=== PATIENT | male | born 1965 | race Caucasian/White ===

== ENCOUNTER 2019-07-10 17:59 | Emergency (ER) | payer OTHER, MEDICAID ==
[~2019-07-10] VITALS: Ht 180.3 cm; Wt 109.6 kg
[2019-07-10 18:10] VITALS: BP 157/89
--- NOTE | 2019-07-10 19:09 | PHYS DOC ---
Past History Past Medical History: Dementia, Schizophrenia Past Medical History Limited secondary to dementia Past Surgical History: No Surgical History Past Surgical History Limited secondary to dementia Smoking: Cigarettes Alcohol Use: None Drug Use: None Social History Limited secondary to dementia Adult General Chief Complaint Chief Complaint: PSYCH EVALUATION HPI HPI 54-year-old male presents with family with report of auditory command hallucinations telling him to please her coming to take him to [facility]. Patient with history of paranoid schizophrenia. Patient recently being adjusted on medications including increase in Seroquel and addition of Zyprexa. Patient with additional diagnosis of dementia. Mother reports that there was concerned that patient's dementia was causing difficulty with his treatment plan. Family reports he called the police who came out and told patient he didn't have any warrants for his arrest. Patient did not believe them. Family reports he has been more aggressive and agitated. History of present illness limited secondary to dementia Review of Systems Review of Systems Psychiatric: Reports auditory command hallucinations; denies suicidal or homicidal ideation Review of systems limited secondary to dementia Current Medications Current Medications Current Medications Medications (Trade) Dose Ordered Sig/Melissa Start Time Stop Time Status Last Admin Dose Admin Lorazepam (Ativan) 1 mg 1X ONCE 07/10/19 19:15 07/10/19 19:16 UNV Physical Exam Physical Exam Constitutional: Well developed, well nourished, no acute distress, non-toxic appearance HENT: Normocephalic, atraumatic, oropharynx moist Eyes: PERRL, EOMI, conjunctiva normal, no discharge, no nystagmus Neck: Normal range of motion, no tenderness, supple Cardiovascular: Heart rate normal, regular rhythm Lungs & Thorax: Bilateral breath sounds clear to auscultation, no wheezing Abdomen: Soft, no tenderness Skin: Warm, dry, no erythema, no rash Extremities: No tenderness, ROM intact, no edema Neurologic: Alert and oriented X1, normal motor function, normal sensory function, no focal deficits noted Psychologic: Affect agitated and paranoid, judgment abnormal; denies suicidal or homicidal ideation. EKG EKG @1849 NSR at 68bpm, NO ST elevation, LAFB, QRS 106ms, QT/QTc 404/430ms Radiology/Procedures Radiology/Procedures [] Course & Med Decision Making Course & Med Decision Making Patient presents with command hallucinations with history of paranoid schizophrenia as well as dementia. Patient denies suicidal or homicidal ideation. Patient is a poor historian. Labs obtained and posted to chart. Patient medically cleared for psychiatric evaluation. Tele-psych evaluation performed and patient recommended for inpatient psychiatric services. Awaiting accepting placement for inpatient psychiatric services. Sign out given to Dr. Horn for further evaluation and final disposition. Discussed current findings and plan with patient and family, who acknowledge understanding and agreement. Dragon Disclaimer Dragon Disclaimer This electronic medical record was generated, in whole or in part, using a voice recognition dictation system. Departure Departure: Impression: Primary Impression: Auditory hallucination Additional Impressions: Dementia Paranoid schizophrenia Referrals: PCP,NO (PCP) Problem Qualifiers Additional Impressions: Dementia Dementia type: unspecified type Dementia behavioral disturbance: without behavioral disturbance Qualified Codes: F03.90 - Unspecified dementia without behavioral disturbance JOHN MENDEZ DO Jul 10, 2019 19:09
[2019-07-10] MEDS ORDERED: LORazepam 1 MG TABLET PO ONE (19:45)
[2019-07-10 19:48] LABS: BASO # 0.1 x10^3/uL (0.0-0.2); BASO % 1 % (0-3); EOS # 0.1 x10^3/uL (0.0-0.7); EOS % 2 % (0-3); HEMATOCRIT 45.8 % (39.0-53.0); HEMOGLOBIN 15.7 g/dL (13.0-17.5); LYMPH # 4.3 x10^3/uL (1.0-4.8); LYMPH % 53 % (24-48); MEAN CORPUSCULAR HEMOGLOBIN 32 pg (25-35); MEAN CORPUSCULAR HGB CONC 34 g/dL (31-37); MEAN CORPUSCULAR VOLUME 94 fL (79-100); MONO # 0.4 x10^3/uL (0.0-1.1); MONO % 5 % (0-9); NEUT # 3.2 x10^3uL (1.8-7.7); NEUT % 39 % (31-73); PLATELET COUNT 244 x10^3/uL (140-400); RED BLOOD COUNT 4.88 x10^6/uL (4.30-5.70); RED CELL DISTRIBUTION WIDTH 15.1 % (11.5-14.5); WHITE BLOOD COUNT 8.1 x10^3/uL (4.0-11.0)
[2019-07-10 20:00] LABS: CALCIUM 8.6 mg/dL (8.5-10.1); GFR 77.6; POTASSIUM 3.7 mmol/L (3.5-5.1)
[2019-07-10 20:06] LABS: ALBUMIN 3.8 g/dL (3.4-5.0); MAGNESIUM 2.3 mg/dL (1.8-2.4); TOTAL BILIRUBIN 0.2 mg/dL (0.2-1.0); TOTAL PROTEIN 7.6 g/dL (6.4-8.2)
[2019-07-10 20:07] LABS: ACETAMIN < 2 mcg/mL (10-30); SALIC 5.3 mg/dL (2.8-20.0)
[2019-07-10 20:20] LABS: % ATYL 1 % (0-0); % BASOS 1 % (0-3); % EOS 1 % (0-5); % LYMPHS 40 % (24-48); % MONOS 8 % (0-10); % SEGS 49 % (35-66)
[2019-07-10 20:21] LABS: PLT ESTIMATE ADEQUATE (ADEQUATE)
[2019-07-10 20:22] LABS: AMPHETAMINE/METHAMPHETAMINE NEG (NEG); BARBITURATES NEG (NEG); BENZODIAZEPINES NEG (NEG); CANNABINOIDS NEG (NEG); COCAINE NEG (NEG); METHADONE NEG (NEG); OPIATES NEG (NEG); PHENCYCLIDINE NEG (NEG)
[2019-07-10 20:26] LABS: BILIRUBIN,URINE NEG (NEG); CLARITY,URINE CLEAR; COLOR,URINE YELLOW; GLUCOSE,URINE NEG (NEG); NITRITE,URINE NEG (NEG); RBC,URINE OCC /HPF (0-2); UROBILINOGEN,URINE 0.2 mg/dL (0.2 mg/dL)
[2019-07-10 20:27] LABS: BACTERIA,URINE 0 /HPF (0-FEW); SQUAMOUS EPITHELIAL CELL,UR FEW /LPF; WBC,URINE OCC /HPF (0-4)
--- NOTE | 2019-07-10 23:45 | EKG ---
[address] [address] Test Date: 2019-07-10 Test Time: 18:49:28 Pat Name: COURTNEY ANDERSON Department: Room: Gender: M [id number] Consultant: : [id number] Requested By: JOHN MENDEZ Order Number: [id number] Reading MD: Measurements Intervals [place] Rate: 68 P: 46 WY: 178 QRS: -34 QRSD: 106 T: 39 QT: 404 QTc: 430 Interpretive Statements SINUS RHYTHM ABNORMAL LEFT AXIS DEVIATION R-S TRANSITION ZONE IN V LEADS DISPLACED TO THE LEFT LEFT ANTERIOR FASCICULAR BLOCK ABNORMAL ECG RI6.01 No previous ECG available for comparison
[2019-07-11] MEDS ORDERED: LORazepam 1 MG TABLET PO ONE ×2 (00:30→06:30)
[2019-07-11] MEDS ORDERED: NICOTINE 21MG PATCH. TD ONE ×2 (05:59→06:30)
[2019-07-11] MEDS ORDERED: OLANZapine 2.5 MG TABLET PO ONE (09:15)
== END 2019-07-11 14:30 | disposition home or self-care (01) ==
LOC: ER 17:59
DX: F03.90 Unspecified dementia, unspecified severity, without behavioral disturbance, psychotic disturbance, mood disturbance, and anxiety (principal); F20.0 Paranoid schizophrenia; F17.210 Nicotine dependence, cigarettes, uncomplicated
CPT/HCPCS: 36415; 80053; 80307; 80329; 81001; 82140; 83735; 85007; 85025; 85610; 85730; 93005; 99284; G0480; 82003